=== PATIENT | male | born 1990 | race Caucasian/White ===

== ENCOUNTER → 2018-10-05 16:53 | Outpatient (CLI) | payer SELFPAY ==
[2015-08-15 17:11] VITALS: BMI 22.6
[2018-10-05 17:51] LABS: Anion Gap 7 (5-15); BUN 14 mg/dL (7-18); BUN/Creat Ratio 12.5 RATIO (10-20); Chloride 106 mmol/L (98-107); Creatinine, Serum 1.12 mg/dL (0.70-1.30); EST Glomerular Filtration Rate 84 mL/min (>60); Est Glom Filt Rate - Afr Amer 102 mL/min (>60); Glucose 86 mg/dL (74-106); Potassium 3.9 mmol/L (3.5-5.1); Sodium Level 141 mmol/L (136-145)
[2018-10-05 17:52] LABS: Absolute Lymphocyte Count 0.98 X10^3/ul (0.83-4.51); Absolute Neutrophil Count 4.3 X10^3/uL (2.0-7.7); Basophil# 0.02 X10^3/uL; Basophil% 0.3 % (0-1); Eosinophil# 0.13 X10^3/uL; Eosinophils% 2.2 % (0-5); Hematocrit 47.5 % (40-54); Hemoglobin 15.9 g/dl (13.0-16.5); Lymphocyte # 0.98 X10^3/ul (4.0); Lymphocyte % 16.5 % (19-41); Mean Corp Hgb Conc 33.5 g/gl (32-36); Mean Corpuscular Hgb 27.6 pg (27.0-32.0); Mean Corpuscular Volume 82.3 fL (80-94); Monocyte# 0.56 X10^3/uL; Monocyte% 9.4 % (0-10); Neutrophil # 4.25 X10^3/uL (2.7-7.7); Neutrophil % 71.4 % (47-70); Platelet Count 209 K/mm3 (150-450); RBC Distribution Width CV 12.9 % (11.6-14.6); RBC Distribution Width SD 38.7 fl (35.1-43.9); Red Blood Count 5.77 M/mm3 (4.6-6.2)
[2018-10-05 18:03] LABS: POSITIVE COUNT NO; POSITIVE DIFFERENTIAL NO; POSITIVE MORPHOLOGY NO
== END ==
LOC: MFPLAB 16:54
PROVIDERS: Family Provider Family Medicine; PCP Family Medicine; Visit Provider Family Medicine
DX: I10 Essential (primary) hypertension (principal)
CPT/HCPCS: 36415; 80048; 85025

== ENCOUNTER 2019-08-26 22:41 | Emergency (ER) | payer SELFPAY ==
[2019-08-22 15:10] VITALS: BMI 22.6
[2019-08-26 22:42] VITALS: BP 144/83; PULSE 100; RESP 15; TEMP 37.3; O2SAT 99; BMI 24.5
--- NOTE | 2019-08-26 22:54 | ED.DCSUM_ITS ---
History of Present Illness Chief Complaint: Nausea/Vomiting Detail of Chief Complaint: Cough with posttussive emesis Informant: Patient Onset: Weeks Context: Gradual Onset Current Severity: Mild Maximum Severity: Moderate Narrative: Patient presents with a one-week history of cough and congestion. [facility] and diagnosed with bronchitis. He was given a Z- Jose and an inhaler. Patient states he feels that the inhaler does help him for short time. He has not noticed any improvement with Z-Jose. He continues to have cough and is now developed posttussive emesis. Patient states he has a headache when he coughs only. He had one temperature of 102, but has otherwise remained afebrile. Past Medical History - Allergies and Home Meds Allergies/Adverse Reactions: Allergies No Known Allergies Allergy (Verified 08/26/19 22:42) Primary Care Physician: Adis Aquino MD [Primary Care Provider] - Prior records reviewed: Yes Past Medical History: - - Reviewed Smoking Status: Former smoker Review of Systems General: Reports: Fever Eyes: Denies: Visual changes - bilaterally ENT: Denies: Bilateral ear pain Cardiovascular: Denies: Chest pain Respiratory: Reports: Cough, Sputum - Occasional sputum production. Denies: Dyspnea Gastrointestinal: Reports: Nausea, Vomiting - Posttussive emesis Genitourinary: Denies: Dysuria Skin: Denies: Rash Neurological: Reports: Headache - With cough only Hematologic: Denies: Easy bruising Allergy: Denies: Uticaria Physical Exam Vital Signs/Narrative: Vital Signs Temp Pulse Resp BP Pulse Ox 08/26/19 22:42 99.2 F H 100 15 144/83 H 99 Inital Vital Signs reviewed: Yes General: Well nourished, Well developed Head: Normocephalic Eyes: Perrl, EOMI ENT: Moist mucous membranes, No rhinorrhea Cardiovascular: Regular rate, Regular rhythm Respiratory: No distress, CTA bilaterally, Chest nontender Abdomen: Soft, Nontender Extremities: Nontender, No edema Skin: Normal color, No rash Neurological: Alert, Oriented x3 Psychological: Normal affect Diagnostic/Tx/Re-eval Impressions Chest X-Ray 08/26/19 23:00 IMPRESSION: Peribronchial thickening and mild interstitial prominence, possibly infectious/inflammatory in nature. Correlate with clinical findings. at 2314 Reported and signed by: Brandie Fishman MD Electronically Signed: Brandie Fishman MD at 23:13 EDT Tel , Service support , 08/26/19 23:00 Chest PA and Lateral [RAD] Stat - Medical Decision Making Patient was given Tessalon Perles here to help control cough. X-ray results are discussed with him. He does have some peribronchial thickening suggestive of bronchitis but no evidence of focal pneumonia. We will treat him with a short course of steroids. He will continue to use his inhaler. I did discuss with him that I think the Z-Jose did not help him significantly because his illness is most likely viral in nature and he agrees. If he develops worsening fever or other symptoms he will return to be reevaluated. ED Disposition - Plan for ED Patient: Disposition: Home or Assisted Living Diagnosis: Bronchitis Instructions: URI, Viral, No Abx (Adult) Prescriptions: Prednisone 10 mg PO UD #33 tablet Benzonatate [Tessalon Perle] 200 mg PO TID PRN PRN #20 capsule PRN Reason: Cough Referrals: Adis Aquino MD [Primary Care Provider] - 1 Week if not improving
--- NOTE | 2019-08-26 23:00 | RAD_ITS ---
HISTORY: nausea and vomiting ADDITIONAL HISTORY: None provided. COMPARISON: 08/26/2019 TECHNIQUE: Frontal and lateral chest radiographs. Number of images including paperwork: 2 FINDINGS: LUNGS AND PLEURA: No consolidation, mass or pleural effusion. Mild interstitial prominence. Peribronchial thickening. CARDIAC SILHOUETTE: Unremarkable. MEDIASTINUM AND LEANDRO: Unremarkable. UPPER ABDOMEN: Unremarkable. SKELETON AND SOFT TISSUES: No acute findings. Degenerative changes. OTHER DEVICES AND HARDWARE: None. RAD/Chest PA and Lateral IMPRESSION: Peribronchial thickening and mild interstitial prominence, possibly infectious/inflammatory in nature. Correlate with clinical findings. at [id number] Reported and signed by: Brandie Fishman MD Electronically Signed: Brandie Fishman MD at 23:13 EDT Tel , Service support ,
[2019-08-26] MEDS: Benzonatate 100 MG Capsule 200 MG PO (23:10)
== END 2019-08-26 23:45 | disposition home or self-care (01) ==
PROVIDERS: Emergency Provider Emergency Medicine; Family Provider Family Medicine; PCP Family Medicine
DX: J40 Bronchitis, not specified as acute or chronic (principal); Z87.891 Personal history of nicotine dependence
CPT/HCPCS: 71046; 99283